=== PATIENT | male | born 1935 | race Caucasian/White ===

== ENCOUNTER 2017-09-06 16:34 | Inpatient (IN) | payer OTHER ==
[2017-09-06] VITALS (7 sets, daily range): BP systolic 66–89; BP diastolic 47–64
[~2017-09-06 16:34] MED LIST: ASPIRIN325 MG PO; CEFTIN500 MG PO; GLIPIZIDE5 MG PO; HYDROCHLOROTHIA25 MG PO; HYDROXYCHLOROQ200 MG PO; LISINOPRIL20 MG PO; LISINOPRIL40 MG PO; LOVASTATIN40 MG PO; METFORMIN HCL1000 MG PO; [UNRECOGNIZED DRUG - OTHER] PO
[2017-09-06 16:57] LABS: BASE EXCESS -23.4 mEq/L (-3 to +3); BICARBONATE 7.6 mEq/L (22-26); COMMENTS - BLOOD GASES A+C+; DEVICE VENT; FI02 100 %; PCO2 33 mm Hg (35-45); PO2 59 mm Hg (80-100); SITE RR; pH 6.97 (7.35-7.45)
[2017-09-06 17:05] LABS: BASOPHIL (%) 0.2 % (0-1); EOSINOPHIL (%) 0.1 % (0-5); HEMATOCRIT 35.4 % (38.0-50.0); IMMATURE GRANULOCYTE (%) 1.6 % (0.0-0.7); LYMPHOCYTE (%) 8.4 % (15-42); LYMPHOCYTE COUNT 0.7 K/uL (1.0-2.8); MCH 32.8 PG (29.0-34.0); MCHC 31.1 G/DL (30.0-36.0); MCV 105.7 FL (86-99); MONOCYTE (%) 5.1 % (3-12); MONOCYTE COUNT 0.5 K/uL (0-0.8); NEUTROPHIL (%) 84.6 % (45-76); NEUTROPHIL COUNT 7.5 K/uL (1.8-6.4); PLATELET COUNT 169 K/uL (156-360); RBC DIS.WIDTH-CV 16.3 % (11.8-14.6); RBC DIS.WIDTH-SD 63.3 % (39-53); RED BLOOD COUNT 3.35 M/uL (4.00-5.50); WHITE BLOOD COUNT 8.8 K/uL (4.1-10.2)
[2017-09-06 17:21] LABS: ALBUMIN 3.2 g/dL (3.2-4.8); CHLORIDE 115 mEq/L (99-109); INTER. NORMALIZED RATIO 1.4; SODIUM 140 mEq/L (136-147)
[2017-09-06 17:22] LABS: MAGNESIUM 2.2 mg/dL (1.3-2.7); POTASSIUM 7.3 mEq/L (3.7-5.4)
[2017-09-06 17:23] LABS: PTT 28.4 SEC (25-37)
[2017-09-06 17:24] LABS: GLUCOSE 83 mg/dL (70-99); TOTAL PROTEIN 5.1 g/dL (6.4-8.3)
[2017-09-06 17:26] LABS: TOTAL BILIRUBIN 0.3 mg/dL (0.0-1.0)
[2017-09-06 17:27] LABS: ALKALINE PHOSPHATASE 76 IU/L (3-129)
[2017-09-06 17:28] LABS: CREATININE 5.6 mg/dL (0.6-1.3); GFR ESTIMATE (CALCULATED) 10 mL/min/ (58.99-99999)
[2017-09-06 17:29] LABS: AST (GOT) 15 IU/L (2-34); DIRECT BILIRUBIN 0.2 mg/dL (0.0-0.3); TROP-I INTERPRETATION NEGATIVE; TROPONIN-I 0.07 ng/mL (0.0-0.30)
[2017-09-06 17:31] LABS: ALT (GPT) 23 IU/L (3-49); UREA NITROGEN (BUN) 124 mg/dL (9-23)
[2017-09-06 18:18] LABS: CARBOXY HGB 1.5 % (0-5); METHEMOGLOBIN 1.6 % (0-1.5); PO2 58 mm Hg (80-100)
[2017-09-06 18:19] LABS: DEVICE VENT; FI02 100 %; MECHANICAL RATE 20 resp/min; MODE ACVC; PCO2 40 mm Hg (35-45); PEEP 5 CM/H20; SITE CATH LAB; TIDAL VOLUME 500 ML
[2017-09-06 18:20] LABS: pH < 6.92 (7.35-7.45)
[2017-09-06 19:20] LABS: BASE EXCESS -22.2 mEq/L (-3 to +3); BICARBONATE 7.8 mEq/L (22-26); CARBOXY HGB 1.5 % (0-5); COMMENTS - BLOOD GASES C+; DEVICE VENT; FI02 100 %; MECHANICAL RATE 24 resp/min; METHEMOGLOBIN 1.6 % (0-1.5); MODE AC; PCO2 31 mm Hg (35-45); PEEP 5 CM/H20; PO2 107 mm Hg (80-100); SITE A-LINE; TIDAL VOLUME 500 ML; TOTAL RESP RATE 24 resp/min
[2017-09-06 19:21] LABS: pH 7.01 (7.35-7.45)
[2017-09-06 21:05] LABS: ALBUMIN 3.3 G/DL (3.2-4.8); ALKALINE PHOSPHATASE 73 IU/L (3-129); ALT (GPT) 21 IU/L (3-49); AST (GOT) 15 IU/L (2-34); CHLORIDE 111 MEQ/L (99-109); CREATININE 4.9 MG/DL (0.6-1.3); GFR ESTIMATE (CALCULATED) 12 mL/min/ (58.99-99999); POTASSIUM 5.9 MEQ/L (3.7-5.4); SODIUM 141 MEQ/L (136-147); TOTAL BILIRUBIN 0.4 MG/DL (0.0-1.0); TOTAL PROTEIN 5.4 G/DL (6.4-8.3)
[2017-09-06 21:06] LABS: GLUCOSE 250 mg/dL (70-99); UREA NITROGEN (BUN) 120 mg/dL (9-23)
[2017-09-06 22:04] LABS: BASE EXCESS -20.1 mEq/L (-3 to +3); BICARBONATE 8.6 mEq/L (22-26); CARBOXY HGB 1.9 % (0-5); COMMENTS - BLOOD GASES C+; DEVICE VENT; METHEMOGLOBIN 1.4 % (0-1.5); PCO2 29 mm Hg (35-45); PO2 99 mm Hg (80-100); SITE A-LINE
[2017-09-06 22:05] LABS: FI02 100 %; MECHANICAL RATE 26 resp/min; MODE AC; PEEP 8 CM/H20; TIDAL VOLUME 550 ML; TOTAL RESP RATE 26 resp/min; pH 7.08 (7.35-7.45)
[2017-09-07] VITALS: BP 87/48
[2017-09-07 00:30] VITALS: BP 91/58
[2017-09-07 01:00] VITALS: BP 75/60
[2017-09-07 01:30] VITALS: BP 71/54
[2017-09-07 02:00] VITALS: BP 72/46
[2017-09-07 03:00] VITALS: BP 68/50
== END 2017-09-07 04:45 | DRG 682 ==
LOC: EME 16:34 → ENRESERV 17:07 → 2SOUTH 18:46 → 4WEST 18:46
PROVIDERS: Emergency Medicine; Internal Medicine Critical Care Medicine; Internal Medicine Pulmonary Disease
DX: N17.9 Acute kidney failure, unspecified (principal); E87.5 Hyperkalemia; R57.0 Cardiogenic shock; J96.00 Acute respiratory failure, unspecified whether with hypoxia or hypercapnia; E87.4 Mixed disorder of acid-base balance; J81.1 Chronic pulmonary edema; E11.65 Type 2 diabetes mellitus with hyperglycemia; E86.1 Hypovolemia; Z66 Do not resuscitate; I49.3 Ventricular premature depolarization; R19.7 Diarrhea, unspecified; I10 Essential (primary) hypertension; I25.10 Atherosclerotic heart disease of native coronary artery without angina pectoris; E78.5 Hyperlipidemia, unspecified; R33.9 Retention of urine, unspecified; Z87.01 Personal history of pneumonia (recurrent); Z79.84 Long term (current) use of oral hypoglycemic drugs
CPT/HCPCS: 36600; 71045; 80047; 80053; 80069; 80076; 80202; 82248; 82330; 82803; 82948; 83605; 83735; 83930; 84484; 84999; 85025; 85610; 85730; 87040; 87070; 87077; 87186; 87205; 87502; 87641; 87801; 93005; 94002; 94003; 94644; 99202; 99281; 99285; C1751; C1788; C1894; C1898; J0171; J0330; J0461; J1265; J1644; J1815; J2543; J3010; J3370; J7030; J7050